=== PATIENT | male | born 1960 | race Caucasian/White ===

== ENCOUNTER 2017-03-20 18:45 | Emergency (ER) | payer BC ==
[~2017-03-20] VITALS: Ht 172.7 cm; Wt 90.9 kg
[2017-03-20] MEDS ORDERED: VALSARTAN320 MG PO (18:52)
[2017-03-20] MEDS ORDERED: AMLODIPINE BESYL5 MG PO (18:52)
[2017-03-20] MEDS ORDERED: ALEVE220 M1 PO (18:53)
[2017-03-20] MEDS ORDERED: ZYRTEC10 M3 PO (18:53)
[2017-03-20] MEDS ORDERED: MUCINEX 60600 MG/TA1 PO (18:53)
[2017-03-20] MEDS ORDERED: ASPIRIN E.C. 8181 MG PO (18:54)
[2017-03-20 19:52] VITALS: BP 170/91
== END 2017-03-20 19:52 | disposition home or self-care (01) ==
LOC: ED 18:45
DX: S61.214A Laceration without foreign body of right ring finger without damage to nail, initial encounter (principal); Z23 Encounter for immunization; I10 Essential (primary) hypertension; W22.8XXA Striking against or struck by other objects, initial encounter; Y92.009 Unspecified place in unspecified non-institutional (private) residence as the place of occurrence of the external cause
CPT/HCPCS: 90715; A4550

== ENCOUNTER 2017-03-31 10:47 | Emergency (ER) | payer BC ==
[~2017-03-31 10:47] MED LIST: ALEVE220 M1 PO; AMLODIPINE BESYL5 MG PO; ASPIRIN E.C. 8181 MG PO; MUCINEX 60600 MG/TA1 PO; VALSARTAN320 MG PO; ZYRTEC10 M3 PO
[2017-03-31 11:37] VITALS: BP 155/93
== END 2017-03-31 11:00 | disposition home or self-care (01) ==
LOC: ED 10:47
DX: Z48.02 Encounter for removal of sutures (principal)